=== PATIENT | female | born 1960 | race Caucasian/White ===

== ENCOUNTER → 2018-09-09 15:18 | Outpatient (CLI) | payer OTHER, SELFPAY ==
--- NOTE | 2018-09-09 15:23 | DI.MG.S_ITS ---
BILATERAL DIGITAL SCREENING MAMMOGRAM 3D/2D WITH CAD: 09/09/2018 CLINICAL: Routine screening. Family history of breast cancer. Comparison is made to exams dated: 09/08/2016 mammogram, 06/16/2013 mammogram, and 06/10/2012 mammogram - [facility]. The tissue of both breasts is heterogeneously dense. This may lower the sensitivity of mammography. Current study was also evaluated with a Computer Aided Detection (CAD) system. No significant masses, calcifications, or other findings are seen in either breast. There has been no significant interval change. IMPRESSION: NEGATIVE There is no mammographic evidence of malignancy. A 1 year screening mammogram is recommended. This exam was interpreted at Station ID: [id number]. NOTE: For mammograms, a report in lay terms will be sent to the patient. Approximately 15% of breast malignancies will not be visualized mammographically. In the management of a palpable breast mass, a negative mammogram must not discourage biopsy of a clinically suspicious lesion. Electronically Signed By: Meka oconnor/carol:09/09/2018 15:48:22 letter sent: Normal Exam ACR BI-RADS Category 1: Negative [id number]
== END ==
PROVIDERS: PCP Family Medicine; Visit Provider Family Medicine
DX: Z12.31 Encounter for screening mammogram for malignant neoplasm of breast (principal); Z80.3 Family history of malignant neoplasm of breast
CPT/HCPCS: 77063; 77067

== ENCOUNTER → 2018-12-03 07:46 | Outpatient (CLI) | payer OTHER, SELFPAY ==
[2018-12-03 08:40] LABS: Add Manual Diff / Slide Review NO; Basophils Percent Auto 0.4 % (0-2); Eosinophils Percent Auto 0.3 % (2-4); Hematocrit 41.9 % (36-46); Lymphocytes Percent Auto 34.5 % (25-40); Mean Corpuscular HGB Conc 33.3 % (30-36); Mean Corpuscular Hemoglobin 30.6 PG (26-34); Mean Corpuscular Volume 91.9 fL (80-100); Monocytes Percent Auto 7.6 % (3-14); Neutrophils Absolute Auto 2400 /uL (1500-7000); Neutrophils Percent Auto 57.2 % (50-75); Platelet Count 192 X10^3/uL (150-400); Red Blood Cell Count 4.56 X10^6/uL (4.0-5.2); Red Cell Distribution Width 12.3 % (11.6-14.8); White Blood Cell Count 4.1 X10^3/uL (4.5-11.0)
[2018-12-03 09:17] LABS: Alanine Aminotransferase 29 IU/L (9-52); Albumin 4.6 g/dL (3.5-5.0); Albumin Globulin Ratio 1.5 (1.0-2.8); Alkaline Phosphatase 36 U/L (38-126); Aspartate Aminotransferase 24 IU/L (14-36); BUN Creatinine Ratio 22.2 (6-22); Bilirubin Total 0.5 mg/dL (0.2-1.3); Blood Urea Nitrogen 20 mg/dL (7-17); Calcium 9.8 mg/dL (8.4-10.2); Carbon Dioxide 31 mmol/L (22-32); Chloride 100 mmol/L (98-107); Cholesterol 230 mg/dL (140-199); Estimated Glomerular Filt Rate > 60.0 mL/min (>60); Glucose 120 mg/dL (70-100); HDL Cholesterol 102 mg/dL (40-60); HEMOLYSIS < 15 (0-50); LDL Cholesterol Calculated 114 mg/dL (<100); Potassium 4.6 mmol/L (3.4-5.1); Sodium 139 mmol/L (137-145); Total Protein 7.6 g/dL (6.3-8.2); Triglycerides 68 mg/dL (35-150)
[2018-12-03 09:43] LABS: TSH w/ Reflex to FT4 2.11 uIU/mL (0.47-4.68)
== END ==
PROVIDERS: PCP Family Medicine; Visit Provider Family Medicine
DX: E03.9 Hypothyroidism, unspecified (principal)
CPT/HCPCS: 36415; 80053; 80061; 84443; 85025

== ENCOUNTER → 2019-09-18 15:20 | Outpatient (CLI) | payer OTHER, SELFPAY ==
--- NOTE | 2019-09-18 15:24 | DI.RAD.S_ITS ---
PROCEDURE: XR LUMBAR SPINE 2-3V INDICATIONS: back pain right, radiation into buttock TECHNIQUE: 3 views of the lumbar spine were acquired. COMPARISON: [facility], , L-SPINE WITHOUT CONTRAST, 03/16/2009, 11:43. FINDINGS: Bones: 5 [id number] vertebrae are present. There is multilevel minimal retrolisthesis. There is severe disc and moderate to severe foraminal narrowing at L5-S1. Mild to moderate disc space narrowing is present L1-L2. No vertebral body compression fractures. No suspicious bony lesions. Soft tissues: Overlying bowel gas pattern is normal. No suspicious soft tissue calcifications. IMPRESSION: Degenerative changes most prominent at L5-S1. It is progressive compared to prior exam. Dictated by: Adina Demarco M.D. on 09/18/2019 at 17:57 Approved by: Adina Demarco M.D. on 09/18/2019 at 17:57
== END ==
PROVIDERS: PCP Family Medicine; Visit Provider Family Medicine
DX: M54.9 Dorsalgia, unspecified (principal); M47.817 Spondylosis without myelopathy or radiculopathy, lumbosacral region; M48.07 Spinal stenosis, lumbosacral region
CPT/HCPCS: 72100

== ENCOUNTER → 2019-10-09 17:35 | Outpatient (CLI) | payer OTHER, SELFPAY ==
--- NOTE | 2019-10-09 17:37 | DI.MRI.S_ITS ---
PROCEDURE: MR LUMBAR SPINE WO CON INDICATIONS: Low back pain radiating into right hip and buttock TECHNIQUE: Noncontrast sagittal T1 spin echo and T2 fast echo, sagittal STIR, axial T1 and T2 fast spin echo through the lumbar spine. In cases with scoliosis, additional coronal T2 fast spin echo may be performed. COMPARISON: [facility], , L-SPINE WITHOUT CONTRAST, 03/16/2009, 11:43. FINDINGS: Image quality: Excellent. Alignment and Curvature: There is trace retrolisthesis of L3 on L4, L4 on L5 and L5 on S1. Bone Marrow: Marrow is of normal overall signal. Moderate reactive endplate changes are present at L5-S1, minimal to mild the remainder of the lumbar spine. Schmorl's node with reactive endplate change are noted along the inferior endplate of L2 and superior endplate of L3. No acute vertebral body compression fractures. Spinal Cord: Conus medullaris terminates at the L1-2 level. Visualized cord demonstrates normal signal and size. Paraspinous Soft Tissues: No paravertebral masses. Partially visualized hepatic cyst is noted. Discs: Severe desiccation is present at L5-S1, mild to moderate throughout the remainder of the lumbar spine. L1-L2: No disc bulge, spinal stenosis or foraminal narrowing. No interval progression in L2-L3: Minimal disc bulge without spinal stenosis. No foraminal narrowing. Minimal interval progression. L3-L4: Mild disc bulge including a small left foraminal component. No spinal stenosis. Minimal bilateral foraminal narrowing with facet and ligamentum flavum hypertrophy. Minimal interval progression. L4-L5: Mild disc bulge with mild spinal stenosis. Moderate bilateral foraminal narrowing with facet and ligamentum flavum hypertrophy. Mild interval progression. L5-S1: Mild disc bulge without spinal stenosis. Moderate to severe bilateral foraminal narrowing, mildly progressive compared to prior exam. Facet and ligamentum flavum hypertrophy are present. IMPRESSION: 1. Multilevel degenerative changes with areas of interval progression most notable at L5-S1. 2. [id number]-[id number] bilateral foraminal narrowing is present L5-S1 secondary to retrolisthesis and facet/ligamentum flavum arthropathy. Dictated by: Adina Demarco M.D. on 10/10/2019 at 8:47 Approved by: Adina Demarco M.D. on 10/10/2019 at 9:33
== END ==
PROVIDERS: PCP Family Medicine; Visit Provider Family Medicine
DX: M54.5 Low back pain (principal); M47.27 Other spondylosis with radiculopathy, lumbosacral region; M48.07 Spinal stenosis, lumbosacral region
CPT/HCPCS: 72148

== ENCOUNTER 2019-12-18 14:54 | Outpatient (CLI) | payer OTHER, SELFPAY ==
[2019-12-18] VITALS (9 sets, daily range): BP systolic 113–142; BP diastolic 73–94; PULSE 55–71; RESP 16–18; TEMP 36.4; O2SAT 96–100
--- NOTE | 2019-12-18 14:56 | DI.RAD.S_ITS ---
PROCEDURE: PAIN L/S TRANSFORAMINAL INJECT INDICATIONS: SPONDYLOSIS FINDINGS: Fluoroscopic spot filming was performed to verify placement of spinal needles at the L4-L5 level(s), as labeled on the films. Appropriate location(s) of the needle tip(s) was confirmed by injection of iodinated contrast. Dictated by: Hair Slaughter M.D. on 12/18/2019 at 16:35 Approved by: Hair Slaughter M.D. on 12/18/2019 at 16:35
[2019-12-18] MEDS: MIDAZOLAM 5 MG/5 ML VIAL IV (15:33)
[2019-12-18] MEDS: fentaNYL 100 MCG/2 ML INJ 50 MCG IV (15:33)
[2019-12-18] MEDS: IOPAMIDOL 15 ML VIAL 3 ML INJ (15:37)
[2019-12-18] MEDS: DEXAMETHASONE 10 MG/ML VIAL 20 MG INJ (15:37)
[2019-12-18] MEDS: BETAMETHASONE 30 MG/5 ML MDV 6 MG INJ (15:37)
[2019-12-18] MEDS: BUPIVACAINE 0.25% (PF) VIAL 2 ML INJ (15:37)
--- NOTE | 2019-12-18 15:43 | PC.NURSE ---
Post Procedure Transfer note: Procedure end at 1543. Patient tolerated sedation. VSS throughout procedure. Able to sit up and transfer to wheelchair with stand by assist. VSS post procedure. Hand off report given to Ange Man RN.
--- NOTE | 2019-12-18 15:49 | PC.NURSE ---
Transfer note: Patient complains of mild numbness and tingling to bilateral feet 4/10 pain when moved to wheelchair.
--- NOTE | 2019-12-18 15:55 | PC.NURSE ---
ACCEPTED CARE OF PT IN POST PROC AREA IN STABLE CONDITION AT 1554. VSS, A&OX4, STEADY ON FEET.
--- NOTE | 2019-12-18 15:56 | P.PCN_ITS ---
Procedures Date/Time Date of procedure: 12/18/19 Time of procedure: 15:56 General Procedure description: PREOP DIAGNOSIS 1. FORMAINAL STENOSIS WITH LE SYMPTOMS POST OP DIAGNOSIS 1. FORMAINAL STENOSIS WITH LE SYMPTOMS PROCEDURES 1. FLUOROSCOPICALLY GUIDED CONTRAST CONTROLLED TRANSFORAMINAL EPIDURAL STEROID INJECTION - RIGHT L4/5 TFESI PHYSICIAN: Renato Lucio DO INDICATIONS: Cheryl is referred by Dr. Delvalle for treatment of Foraminal Stenosis with Right LE Symptoms FINDINGS Foraminal Nerve Root Compression secondary to disc disease and facet hypertrophy DESCRIPTION OF PROCEDURE: Following review of allergy and review of potential side effects and complications, including, but not necessarily limited to, infection, allergic reaction, local tissue breakdown, stroke, temporary or permanent nerve injury, paralysis, and possible , the patient indicated that the patient understood and agreed to proceed. An informed consent document was signed by the patient, witnessed by a nurse, and placed in the patient's chart. Additionally, other treatment options including medications, modalities, and physical therapy were reviewed with the patient. After review of previous anaesthesic history and IV conscious sedation the patient was deemed safe to proceed with todays procedure with IV conscious sedation as ASA class II designation. Safety time-out was performed to confirm patient ID, procedure to be performed and site of procedure. IV sedation was accomplished with a combination of 1mg of Versed and 50mcg of Fentanyl was administered by the RN after DO order, titrated to patient comfort during the course of the procedure while the patient remained responsive to all verbal commands In the prone position following sterile prep and drape of the lumbar region, the Right L4/5 posterior neuroforamen was identified fluoroscopically. The skin was anesthetized via a 25-gauge 1.5-inch needle with 1% lidocaine solution. At this point, a 25-gauge 3.5-inch spinal needle was atraumatically introduced and adv anced under fluoroscopic guidance through the posterior Right L4/5 neuroforamen to approximately the anterior aspect of the canal. Depth was confirmed on lateral view. Following negative aspiration, injection of approximately 1.5 cc of Isovue 200 under live fluoroscopy in the AP view confirmed excellent flow along the nerve root, into the epidural space without vascular or intrathecal uptake observed Radiological data, including multiple fluoroscopic views of the lumbosacral spine, reveal a spinal needle at the right L4/5 posterior neuroforamen. Subsequent views show flow of contrast material flowing superiorly and inferiorly along the nerve root confirming epidural flow. Subsequently, a test dose of 1.5 cc of 0.25% Marcaine solution was administered and patient was observed for two minutes for signs or symptoms of complications, including abdominal pain, shortness of breath, bilateral upper or lower extremity weakness, nausea and vomiting, prior to steroid injection. At this point, a total of 3cc or 20mg of dexamethasone and 6mg of betamethasone was injected without incident. The procedure tolerated the procedure well without signs or symptoms of complications prior to transfer to the recovery area continued monitoring without incident.The patient was then transferred to the recovery area where they were observed for an appropriate time after the injection. The patient reported a VAS score of 7 prior to the procedure and a post- procedure VAS of 0. Total Fluoroscopy Time: 8 seconds Total Conscious Sedation Time: 24min POST OP INSTRUCTIONS The patient was provided a Pain Log to continue to record their response to the target-specific procedure prior to follow-up visit with their referring physician. Additionally, specific post-injection care instructions and a contact number to our office were provided if concerns arise regarding possible complications associated with the procedure are suspected. Renato Lucio, Complications: none
== END 2019-12-18 16:18 | disposition home or self-care (01) ==
PROVIDERS: PCP Family Medicine; Visit Provider Physical Medicine & Rehabilitation
DX: M48.061 Spinal stenosis, lumbar region without neurogenic claudication (principal); M51.16 Intervertebral disc disorders with radiculopathy, lumbar region
CPT/HCPCS: 64483; 99152; J0702; J1100; J2250; J3010

== ENCOUNTER → 2020-08-13 07:00 | Outpatient (CLI) | payer OTHER, SELFPAY ==
[2020-08-13 08:19] LABS: Alanine Aminotransferase 26 IU/L (<35); Albumin 4.3 g/dL (3.5-5.0); Albumin Globulin Ratio 1.7 (1.0-2.8); Alkaline Phosphatase 40 U/L (38-126); Aspartate Aminotransferase 26 IU/L (14-36); Bilirubin Total 0.8 mg/dL (0.2-1.3); Blood Urea Nitrogen 13 mg/dL (7-17); Calcium 9.7 mg/dL (8.4-10.2); Carbon Dioxide 30 mmol/L (22-32); Chloride 97 mmol/L (98-107); Cholesterol 215 mg/dL (140-199); Estimated Glomerular Filt Rate > 60.0 mL/min (>60); Globulin 2.5 g/dL (1.7-4.1); Glucose 114 mg/dL (80-110); HDL Cholesterol 107 mg/dL (40-60); HEMOLYSIS < 15 (0-50); LDL Cholesterol Calculated 96 mg/dL (<100); Potassium 4.6 mmol/L (3.4-5.1); Sodium 133 mmol/L (137-145); Total Protein 6.8 g/dL (6.3-8.2); Triglycerides 62 mg/dL (35-150)
[2020-08-13 08:36] LABS: Free T3, Triiodothyronine Free 3.31 pg/mL (2.77-5.27); Free T4, Direct Thyroxine 1.38 ng/dL (0.78-2.19)
[2020-08-13 08:49] LABS: Thyroid Stimulating Hormone 1.75 uIU/mL (0.47-4.68)
== END ==
PROVIDERS: PCP Family Medicine; Referring Provider Family Medicine; Visit Provider Family Medicine
DX: E78.5 Hyperlipidemia, unspecified (principal); E03.9 Hypothyroidism, unspecified; R73.01 Impaired fasting glucose
CPT/HCPCS: 36415; 80053; 80061; 84439; 84443; 84481

== ENCOUNTER → 2020-11-25 10:14 | Outpatient (CLI) | payer OTHER, SELFPAY ==
--- NOTE | 2020-11-25 10:15 | DI.RAD.S_ITS ---
PROCEDURE: XR LUMBAR SPINE MIN 4V INDICATIONS: update imaging TECHNIQUE: 5 lower lumbar spondylosis and diffuse facet arthropathy. views of the lumbar spine were acquired. COMPARISON: [facility], , XR LUMBAR SPINE 2-3V, 09/18/2019, 15:33. FINDINGS: Bones: No fracture. Lower lumbar spondylosis and facet arthropathy. Multilevel degenerative endplate sclerosis and spurring. Diffuse facet arthropathy. Grade 1 anterolisthesis of L5 on S1. Moderate L4-L5 and L5-S1 disc space narrowing Soft tissues: Overlying bowel gas pattern is normal. No suspicious soft tissue calcifications. Oblique images: No pars defects. IMPRESSION: Lower lumbar spondylosis and diffuse facet arthropathy. Minimal interval progression since 09/18/19 Dictated by: Hair Slaughter M.D. on 11/25/2020 at 11:57 Approved by: Hair Slaughter M.D. on 11/25/2020 at 12:12
== END ==
PROVIDERS: PCP Family Medicine; Referring Provider Family Medicine; Visit Provider Physical Medicine & Rehabilitation
DX: M47.27 Other spondylosis with radiculopathy, lumbosacral region (principal)
CPT/HCPCS: 72110

== ENCOUNTER → 2021-02-25 08:56 | Outpatient (CLI) | payer OTHER, SELFPAY ==
[2021-02-25] MEDS: COVID-19 VACC #1, MRNA(MOD) 100 MCG/0.5 ML VIAL IM (09:06)
== END ==
PROVIDERS: PCP Family Medicine; Visit Provider Internal Medicine
DX: Z23 Encounter for immunization (principal)
CPT/HCPCS: 0011A; 91301

== ENCOUNTER → 2021-03-16 16:34 | Outpatient (CLI) | payer OTHER, SELFPAY ==
--- NOTE | 2021-03-16 16:36 | DI.MG.S_ITS ---
BILATERAL DIGITAL SCREENING MAMMOGRAM 3D/2D WITH CAD: 03/16/2021 CLINICAL: Routine screening. Comparison is made to exams dated: 09/09/2018 mammogram, 09/08/2016 mammogram, and 06/16/2013 mammogram - [facility]. The tissue of both breasts is heterogeneously dense. This may lower the sensitivity of mammography. Current study was also evaluated with a Computer Aided Detection (CAD) system. No significant masses, calcifications, or other findings are seen in either breast. There has been no significant interval change. IMPRESSION: NEGATIVE There is no mammographic evidence of malignancy. A 1 year screening mammogram is recommended. This exam was interpreted at Station ID: [id number]. NOTE: For mammograms, a report in lay terms will be sent to the patient. Approximately 15% of breast malignancies will not be visualized mammographically. In the management of a palpable breast mass, a negative mammogram must not discourage biopsy of a clinically suspicious lesion. Electronically Signed By: Nitin rubin/carol:03/16/2021 17:01:45 letter sent: Normal Exam ACR BI-RADS Category 1: Negative 3341F
== END ==
PROVIDERS: PCP Family Medicine; Referring Provider Family Medicine; Visit Provider Family Medicine
DX: Z12.31 Encounter for screening mammogram for malignant neoplasm of breast (principal)
CPT/HCPCS: 77063; 77067

== ENCOUNTER → 2021-03-25 11:55 | Outpatient (CLI) | payer OTHER, SELFPAY ==
[2021-03-25] MEDS: COVID-19 VACC #2, MRNA(MOD) 100 MCG/0.5 ML VIAL IM (12:07)
== END ==
PROVIDERS: PCP Family Medicine; Visit Provider Internal Medicine
DX: Z23 Encounter for immunization (principal)
CPT/HCPCS: 0012A; 91301

== ENCOUNTER → 2021-11-11 08:38 | Outpatient (CLI) | payer OTHER, SELFPAY ==
[2021-11-11 10:43] LABS: Appearance Urine UA CLEAR; Bilirubin Urine UA NEGATIVE (NEGATIVE); Color Urine UA YELLOW; Glucose Urine UA NEGATIVE (Negative); Ketones Urine UA NEGATIVE (NEGATIVE); Leukocyte Esterase Urine UA NEGATIVE (NEGATIVE); Nitrite Urine UA NEGATIVE (Negative); Occult Blood Urine UA NEGATIVE (Negative); Protein Urine UA NEGATIVE (Negative); Urobilinogen Urine UA 0.2 E.U./dL (0.2)
[2021-11-11 11:21] LABS: Bacteria Urine None Seen; Squamous Epithelial Cell Urine None Seen (0-5/HPF); WBC Urine None Seen (0-5/HPF)
[2021-11-11 11:22] LABS: Culture Indicated Urine Cult Not Indicated; RBC Urine None Seen (0-5/HPF)
== END ==
PROVIDERS: PCP Family Medicine; Referring Provider Family Medicine; Visit Provider Family Medicine
DX: R39.15 Urgency of urination (principal)
CPT/HCPCS: 81001

== ENCOUNTER → 2022-01-30 08:15 | Outpatient (CLI) | payer OTHER, SELFPAY ==
--- NOTE | 2022-01-30 08:16 | DI.RAD.S_ITS ---
PROCEDURE: XR LUMBAR SPINE MIN 4V INDICATIONS: BACK AND RIGHT HIP PAIN TECHNIQUE: 5 views of the lumbar spine were acquired, including bilateral oblique views. COMPARISON: [facility], , XR LUMBAR SPINE MIN 4V, 11/25/2020, 10:15. FINDINGS: Bones: 5 nonrib-bearing vertebrae are present. There is normal bony alignment. No vertebral body compression fractures. Moderate disc height loss at L5-S1. Endplate osteophytosis. Facet arthrosis, most prominent at L5-S1. Soft tissues: Overlying bowel gas pattern is normal. No suspicious soft tissue calcifications. Oblique images: No pars defects. IMPRESSION: No significant osseous abnormality. Dictated by: Rl Martin M.D. on 01/30/2022 at 10:28 Approved by: Rl Martin M.D. on 01/30/2022 at 10:36
== END ==
PROVIDERS: PCP Family Medicine; Referring Provider Physical Medicine & Rehabilitation; Visit Provider Physical Medicine & Rehabilitation
DX: M47.27 Other spondylosis with radiculopathy, lumbosacral region; M70.61 Trochanteric bursitis, right hip
CPT/HCPCS: 72110; 99214

== ENCOUNTER → 2022-02-14 10:15 | Outpatient (CLI) | payer OTHER, SELFPAY ==
[2022-02-14 12:42] LABS: COVID19 -Nasal RAPID Negative (Negative)
== END ==
PROVIDERS: PCP Family Medicine; Visit Provider Physical Medicine & Rehabilitation
DX: Z20.822 Contact with and (suspected) exposure to COVID-19 (principal)
CPT/HCPCS: 87635; C9803

== ENCOUNTER 2022-02-16 13:42 | Outpatient (CLI) | payer OTHER, SELFPAY ==
[2022-02-16] VITALS (9 sets, daily range): BP systolic 111–135; BP diastolic 67–89; PULSE 61–69; RESP 10–18; TEMP 36.7; O2SAT 98–100
--- NOTE | 2022-02-16 13:43 | DI.RAD.S_ITS ---
PROCEDURE: PAIN L/S FACET INJ/BLK 1ST ALDA COMPARISON: None. INDICATIONS: SPONDYLOSIS FINDINGS: Fluoroscopic spot filming was performed to verify placement of spinal needles on both sides at the L4, L5, and S1 levels, as labeled on the films. Appropriate location of the needle tips was confirmed by injection of iodinated contrast. IMPRESSION: Intraprocedural examination within normal limits. Dictated by: Marcello Moreno M.D. on 02/16/2022 at 14:00 Approved by: Marcello Moreno M.D. on 02/16/2022 at 14:01
[2022-02-16] MEDS: MIDAZOLAM 2 MG/2 ML VIAL IV (14:23)
[2022-02-16] MEDS: BUPIVACAINE 0.5% (PF) VIAL 5 ML INJ (14:26)
[2022-02-16] MEDS: IOPAMIDOL 15 ML VIAL 3 ML INJ (14:27)
[2022-02-16] MEDS: LIDOCAINE 1% 20 ML INJ (14:28)
--- NOTE | 2022-02-16 14:44 | PM.PROC.IR.1 ---
Date/Time/Diagnoses Date of procedure: 02/16/22 Time of procedure: 14:44 Pre-procedure diagnosis: 1. FACET ARTHROPATHY Post-procedure diagnosis: same Procedure Notes Procedure: 1. BILATERAL- L4, L5 and S1 DIAGNOSTIC MB BLOCKS with LA Anesthetic Indications: Cheryl is referred by Dr. Ramirez for treatment of Bilateral Axial LBP. Physician: Renato Lucio Total Fluoroscopy time (seconds): 8 Total sedation minutes: 12 Complications: none Procedure in detail & Post-procedure care: DESCRIPTION OF PROCEDURE Fluoroscopically guided, contrast-controlled bilateral L4, L5 and S1 medial branch blocks with 0.5cc of 0.5% Marcaine. Following review of allergy and review of potential side effects and complications, including, but not necessarily limited to, infection, allergic reaction, local tissue breakdown, nerve injury, paralysis, stroke and possible , the patient indicated that the patient understood and agreed to proceed. An informed consent document was signed by the patient, witnessed by a nurse, and placed in the patient's chart. After review of previous anaesthesic history and IV conscious sedation the patient was deemed safe to proceed with today's procedure with IV conscious sedation as ASA class II designation. Safety time-out was performed to confirm patient ID, procedure to be performed and site of procedure. IV sedation was accomplished with a combination of 2mg of Versed was administered by the RN after DO order, titrated to patient comfort during the course of the procedure while the patient remained responsive to all verbal commands In the prone position, following sterile prep and drape of the lumbar region, the right L4, L5 and S1 anatomical location of the medial branch of the dorsal ramus was identified fluoroscopically. Subsequently an anesthetic skin wheal using 1% lidocaine solution was initiated at each of the anatomical spots. Subsequently then a 22-gauge 3.5-inch spinal needle was atraumatically introduced and advanced under fluoroscopic guidance at each of the corresponding sites at the right L4, L5 and S1 MB. After negative aspiration, 0.2cc of Isovue 200 was injected, confirming placement without vascular or intrathecal uptake. Subsequently then 0.5cc of 0.5% Marcaine solution was injected at each of the corresponding sites at the right L4, L5 and S1 medial branch locations. The identical procedure was replicated on the left. The patient tolerated the procedure well without signs or symptoms of complications prior to transfer to the recovery area continued monitoring without incident. Post-procedure, the patient was monitored initiating provocative activities to measure the amount of relief from block of the facetogenic pain. The patient reported a VAS of 7 prior to the procedure and a post-procedure VAS of 1. It has been a pleasure to assist in the diagnostic and therapeutic care of your patient. POST OP INSTRUCTIONS The patient was provided with a Pain Log to complete over the next several hours and subsequent days prior to the patient's follow up with the ordering physician. If the patient has pet sitting relief to the solution applied, then they may be a candidate for medial branch rhizotomy. The patient is aware, was provided, once again, with a Pain Log and will follow up with the referring physician for review and clinical correlation
== END 2022-02-16 14:58 | disposition home or self-care (01) ==
LOC: RAD 13:43
PROVIDERS: PCP Family Medicine; Referring Provider Physical Medicine & Rehabilitation; Visit Provider Physical Medicine & Rehabilitation
DX: M47.816 Spondylosis without myelopathy or radiculopathy, lumbar region (principal); M47.817 Spondylosis without myelopathy or radiculopathy, lumbosacral region
CPT/HCPCS: 64493; 64494; 99152; J2250; J3010

== ENCOUNTER → 2022-03-17 07:48 | Outpatient (CLI) | payer OTHER, SELFPAY ==
[2022-03-17 08:44] LABS: Add Manual Diff / Slide Review NO; Basophils Absolute Auto 0 /uL (0-100); Basophils Percent Auto 0.8 % (0-2); Eosinophils Absolute Auto 0 /uL (0-450); Eosinophils Percent Auto 0.6 % (2-4); Hematocrit 42.2 % (36-46); Lymphocytes Absolute Auto 1700 /uL (1100-4500); Lymphocytes Percent Auto 36.6 % (25-40); Mean Corpuscular HGB Conc 33.1 % (30-36); Mean Corpuscular Hemoglobin 30.2 PG (26-34); Mean Corpuscular Volume 91.2 fL (80-100); Monocytes Absolute Auto 400 /uL (0-900); Monocytes Percent Auto 7.9 % (3-14); Neutrophils Absolute Auto 2500 /uL (1500-7000); Neutrophils Percent Auto 54.1 % (50-75); Platelet Count 210 X10^3/uL (150-400); Red Blood Cell Count 4.62 X10^6/uL (4.0-5.2); Red Cell Distribution Width 12.7 % (11.6-14.8); White Blood Cell Count 4.6 X10^3/uL (4.5-11.0)
[2022-03-17 08:46] LABS: Hemoglobin A1C% w Est Avg Glu 5.4 % (4.0-6.0)
[2022-03-17 08:55] LABS: Alanine Aminotransferase 26 IU/L (<35); Albumin 4.6 g/dL (3.5-5.0); Albumin Globulin Ratio 1.6 (1.0-2.8); Alkaline Phosphatase 34 U/L (38-126); Aspartate Aminotransferase 29 IU/L (14-36); BUN Creatinine Ratio 21.4 (6-22); Bilirubin Total 0.9 mg/dL (0.2-1.3); Blood Urea Nitrogen 18 mg/dL (7-17); Calcium 9.6 mg/dL (8.4-10.2); Carbon Dioxide 28 mmol/L (22-32); Chloride 99 mmol/L (98-107); Cholesterol 248 mg/dL (140-199); Estimated Glomerular Filt Rate > 60 mL/min (>60); Globulin 2.8 g/dL (1.7-4.1); Glucose 117 mg/dL (80-110); HEMOLYSIS < 15 (0-50); Potassium 4.7 mmol/L (3.4-5.1); Sodium 135 mmol/L (137-145); Total Protein 7.4 g/dL (6.3-8.2); Triglycerides 61 mg/dL (35-150)
[2022-03-17 09:04] LABS: HDL Cholesterol 142 mg/dL (40-60); LDL Cholesterol Calculated 94 mg/dL (<100)
[2022-03-17 09:16] LABS: Creatinine Urine Random 25.6 mg/dL
[2022-03-17 09:24] LABS: TSH w/ Reflex to FT4 2.11 uIU/mL (0.47-4.68)
[2022-03-17 09:29] LABS: Microalbumin Urine Random < 0.6 mg/dL (0-1.6)
== END ==
PROVIDERS: PCP Family Medicine; Referring Provider Family Medicine; Visit Provider Family Medicine
DX: I10 Essential (primary) hypertension (principal); E03.9 Hypothyroidism, unspecified; K63.5 Polyp of colon; R73.01 Impaired fasting glucose; Z12.11 Encounter for screening for malignant neoplasm of colon
CPT/HCPCS: 36415; 80053; 80061; 82043; 82570; 83036; 84443; 85025

== ENCOUNTER → 2022-05-24 09:49 | Outpatient (CLI) | payer OTHER, SELFPAY ==
[2022-05-24 10:32] LABS: COVID19 -Nasal RAPID Negative (Negative)
== END ==
PROVIDERS: PCP Family Medicine; Visit Provider Surgery
DX: Z20.822 Contact with and (suspected) exposure to COVID-19 (principal); Z01.812 Encounter for preprocedural laboratory examination
CPT/HCPCS: 87635; C9803

== ENCOUNTER 2022-05-25 08:54 | Day surgery (SDC) | payer OTHER, SELFPAY ==
--- NOTE | 2022-05-25 | PATH_ITS ---
[facility] Accession Number: [id number] . 01 Material submitted: . colon - ASCENDING COLON POLYPS . 01 Clinical history: . [facility] [place]AL HISTORY OF COLONIC POLYPS . 01 Diagnosis: Ascending Colon, Polyps, Biopsies: Sessile serrated adenomas. [facility] [place] 05/31/2022 1217 Local . 01 Electronically signed: . Lindsey Garcia MD, Pathologist NPI- [id number] . 01 Gross description: . ASCENDING COLON POLYPS: Received in formalin are 2 fragment(s) of bliss, soft tissue measuring 0.5 x 0.4 x 0.3 cm to 0.4 x 0.3 x 0.2 cm submitted entirely in 1 cassette(s) /CPE 05/26/2022 0620 Local . 01 Pathologist provided ICD-10: D12.2 . 01 CPT . 552646 Specimen Comment: A courtesy copy of this report has been sent to [phone] Performed at: 01 [facility] [address] [place] [address] [address] [facility], [place], [place] [id number] MD Sp Oliver MD Phone: [phone]
[2022-05-25 09:08] VITALS: BP 149/89; PULSE 69; RESP 15; TEMP 36.7; O2SAT 99; BMI 23.8
[2022-05-25] MEDS: LACTATED RINGERS 1,000 ML 42 ML IV (09:17)
--- NOTE | 2022-05-25 10:51 | PM.HP.1 ---
History of Present Illness History of Present Illness Date Patient Seen: 05/25/22 Time Patient Seen: 10:51 Chief complaint: [facility] [place] Narrative: Bridget is a 61-year-old woman who has a history of colon polyps. Her last colonoscopy was about 5 years ago and polyps were found. She has a family history of colon polyps. Patient History Medical History Back pain Facet arthropathy, lumbar Family history of melanoma Greater trochanteric bursitis of right hip Hypertension Laceration of head Lumbosacral spondylosis with radiculopathy Sleep pattern disturbance (09/22/15) Snoring Syncope with normal neurologic examination Surgical History History of endometrial ablation History of surgical removal of ganglion cyst Status post endometrial ablation Family & Social History Family History Brother Age: 68 Hypertension Child Age: 35 Cancer Melanoma Father Cancer Diabetes mellitus Heart disease Hypertension High cholesterol Melanoma Mother Hypertension Mental health problem Sister Age: 66 Arthritis Social History: household members spouse Tobacco & Substance use: Smoking Status Never smoker alcohol intake current alcohol intake frequency a few times a week Substance Use Type does not use Meds Home Medications and Allergies Home Medications Medication Instructions Recorded Confirmed Type [VITAMIN D] 5,000 iu ##0 08/18/13 05/15/22 History vitamin B comp and C no.3 15 mg-10 1 cap PO DAILY 12/17/20 05/25/22 History mg-50 mg-5 mg-300 mg capsule (B Complex Plus Vitamin C) magnesium 200 mg tablet 200 mg PO DAILY 02/16/21 05/25/22 History citalopram 20 mg tablet See Rx Instructions .Route 09/09/21 05/25/22 Rx .COMPLEX #90 tabs meloxicam 15 mg tablet 15 mg PO DAILY #90 tabs 01/30/22 05/25/22 Rx estradiol 0.01% (0.1 mg/gram) 1 appful vaginal DAILY 03/21/22 05/15/22 Rx vaginal cream postmenopausal atrophy #42.5 grams levothyroxine 50 mcg tablet 50 mcg PO DAILY #90 tabs 05/18/22 05/25/22 Rx Allergies Allergy/AdvReac Type Severity Reaction Status Date / Time No Known Allergies Allergy Verified 05/25/22 09:14 Exam Vital Signs (past 8 hours): - 05/25/22 09:08 Temperature 98.1 F Pulse Rate 69 Respiratory Rate 15 Blood Pressure 149/89 H Pulse Oximetry 99 Oxygen Delivery Method Room Air Oxygen Delivery Method Room Air Const General: healthy appearing Resp Effort & Inspection: normal respiratory effort Assessment & Plan Assessment and plan (1) Personal history of colonic polyps: Status: Acute Plan 61-year-old woman with a personal history of colon polyps. We reviewed the risks and benefits of colonoscopy and she would like to proceed. Time Spent With Patient Critical Care time: I spent a total of [] minutes of critical care time on this patient's care today; this time is exclusive of procedural time.
[2022-05-25] MEDS: fentaNYL 250 MCG/5 ML INJ 175 MCG IV (11:25)
[2022-05-25] MEDS: MIDAZOLAM 5 MG/5 ML VIAL 8 MG IV (11:25)
--- NOTE | 2022-05-25 11:28 | PM.OP.COLON ---
Operative Date/Time/Diagnoses Date of procedure: 05/25/22 Time of procedure: 11:28 Pre-op diagnosis: History of polyps Post-op diagnosis: same Procedure & Clinicians Study performed: Colonoscopy Same procedure as scheduled: Yes Surgeon: Mike Dunlap Procedure Notes Procedure in detail: Surgeon: Mike Dunlap MD Procedure: The patient was brought to the endoscopy suite, placed in left lateral decubitus position. The patient was connected to monitoring devices. A time-out was performed. Sedation was administered. Once the patient was adequately sedated, a digital rectal exam was performed and was normal. The scope was then inserted and advanced to the cecum where the appendiceal orifice was identified and photographed. The scope was then slowly withdrawn over greater than 6 minutes. The mucosa was thoroughly inspected. There were 2 sessile polyps in the ascending colon. One was about 6 mm and 1 was about 1 cm. The first smaller polyp was removed with cold snare and the second polyp was removed with hot snare. There were some diverticula in the sigmoid colon. The rest of the colon was normal. The scope was retroflexed in the rectum. No abnormalities were identified. The scope was straightened and removed. The patient was awakened and brought to recovery. Versed: 8 mg Fentanyl: 175 mcg EBL: 3 mL Findings: An 8 mm polyp and a 1 cm polyp in the ascending colon, occasional sigmoid diverticulosis Scope withdrawal time: 11 Sedation minutes: 26 Post-procedure Recommendations: Will call with biopsy results Follow up: weeks
[2022-05-25 11:31] VITALS: BP 95/65; PULSE 56; RESP 16; TEMP 36.2; O2SAT 95
[2022-05-25 11:37] VITALS: BP 95/65; PULSE 85; RESP 16; O2SAT 98
[2022-05-25 11:43] VITALS: BP 98/71; PULSE 66; RESP 16; TEMP 36.3; O2SAT 98
[2022-05-25 11:50] VITALS: BP 122/72; PULSE 66; RESP 18; TEMP 36.9; O2SAT 98
== END 2022-05-25 11:55 | disposition home or self-care (01) ==
PROVIDERS: PCP Family Medicine; Referring Provider Surgery; Visit Provider Surgery
PROC: 0DJD8ZZ Inspection of Lower Intestinal Tract, Via Natural or Artificial Opening Endoscopic (ICD-10-PCS; CPT 45378; principal; 2022-05-25 10:00)
DX: Z12.11 Encounter for screening for malignant neoplasm of colon (principal); Z86.010 Personal history of colon polyps; K57.30 Diverticulosis of large intestine without perforation or abscess without bleeding; D12.2 Benign neoplasm of ascending colon
CPT/HCPCS: 45385; 99152; J2250; J3010